=== PATIENT | female | born 1950 | race Caucasian/White ===

== ENCOUNTER → 2019-09-05 11:07 | Outpatient (CLI) | payer MEDICARE, SELFPAY ==
[2019-09-05 11:59] LABS: BUN 16 mg/dL (7-18); Creatinine, Serum 0.68 mg/dL (0.55-1.02); EST Glomerular Filtration Rate 90 mL/min (>60); Est Glom Filt Rate - Afr Amer 109 mL/min (>60)
== END ==
PROVIDERS: PCP Internal Medicine; Referring Provider Surgery Vascular Surgery; Visit Provider Surgery Vascular Surgery
DX: I72.8 Aneurysm of other specified arteries (principal); M54.9 Dorsalgia, unspecified
CPT/HCPCS: 36415; 82565; 84520

== ENCOUNTER → 2019-09-09 13:40 | Outpatient (CLI) | payer MEDICARE, SELFPAY ==
--- NOTE | 2019-09-09 13:54 | CT_ITS ---
STUDY: CT ANGIOGRAM OF THE ABDOMEN AND PELVIS WITH AND WITHOUT CONTRAST REASON FOR EXAM: Female, 69 years old. ANEURYSM OF SPLENIC ARTERY RADIATION DOSAGE (If Supplied By Facility): CTDIvol = ( 26.77 ) mGy, DLP = ( 851.20 ) mGycm. Individualized dose optimization techniques were used for this CT.? TECHNIQUE: Transaxial images were obtained through the abdomen and pelvis after administration of 100 mL Isovue 370 intravenous contrast without oral contrast.Sagittal and coronal images were reconstructed. COMPARISON: August 12, 2017. FINDINGS: Lung bases are clear. The heart is not enlarged. Multiple cysts in the liver largest in left lobe measuring 6.0 x 5.2 cm, not significantly changed. Gallbladder, pancreas, spleen, adrenal glands, kidneys and ureters are normal. Normal abdominal aortic aneurysm. Normal origins of the celiac axis, superior mesenteric artery, single bilateral renal arteries and inferior mesenteric artery. Again noted is a peripherally calcified splenic artery aneurysm measuring 1.9 x 1.8 x 1.8 cm located approximately 4 cm from the splenic hilum adjacent to the posterior margin, tail of pancreas not significantly changed in appearance since the prior study, coronal image 74. No perianeurysmal inflammatory changes. No evidence of a leak. Urinary bladder is normal. Uterus grossly normal. No adnexal mass seen. Stomach is not well distended limiting evaluation. Small intestine and colon are grossly normal. Normal appendix. No intra-abdominal free air. Mild degenerative changes of the lower thoracic and lumbar spine. Osseous hemangioma L4. 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 No evidence of a leak. Stable hepatic cysts. No acute findings in the abdomen or pelvis. Electronically Signed: Henok Del Rio MD at 7:52 EST , Service support ,
== END ==
PROVIDERS: PCP Internal Medicine; Referring Provider Surgery Vascular Surgery; Visit Provider Surgery Vascular Surgery
DX: I72.8 Aneurysm of other specified arteries (principal); M54.9 Dorsalgia, unspecified
CPT/HCPCS: 74174; Q9967

== ENCOUNTER 2020-02-08 08:17 | Day surgery (SDC) | payer MEDICARE, SELFPAY ==
[2020-02-03 13:24] LABS: Hematocrit 40.9 % (37-47); Hemoglobin 13.5 g/dL (12.0-15.0); Mean Corpuscular Hgb 31.9 pg (27.0-32.0); Mean Corpuscular Volume 96.7 fL (81-99); Mean Platelet Vol. 10.1 fl (6.2-12.0); Platelet Count 264 K/mm3 (150-450); RBC Distribution Width CV 13.8 % (11.6-14.6); RBC Distribution Width SD 48.8 fl (35.1-43.9); Red Blood Count 4.23 M/mm3 (4.2-5.4)
[2020-02-03 13:41] LABS: International Normalized Ratio 1.1; Partial Thromboplast Time 29.7 Seconds (24.1-36.2); Prothrombin Time (Protime)PT. 13.7 SECONDS (11.7-14.9)
[2020-02-03 14:14] LABS: ALB/GLOB Ratio 1.1 RATIO (0.9-2.4); AST(SGOT) 11 U/L (15-37); Alanine Aminotransfer ALT/SGPT 23 U/L (13-56); Albumin, Serum 3.8 g/dL (3.2-5.0); Alkaline Phosphatase 72 U/L (45-117); Anion Gap 7 (5-15); BUN 12 mg/dL (7-18); BUN/Creat Ratio 17.9 RATIO (10-20); Calcium,Total 8.7 mg/dL (8.5-10.1); Chloride 103 mmol/L (98-107); Creatinine, Serum 0.67 mg/dL (0.55-1.02); EST Glomerular Filtration Rate 93 mL/min (>60); Est Glom Filt Rate - Afr Amer 112 mL/min (>60); Globulin 3.5 g/dL (2.2-4.2); Glucose 90 mg/dL (74-106); Potassium 3.8 mmol/L (3.5-5.1); Protein, Total 7.3 g/dL (6.4-8.2); Sodium Level 139 mmol/L (136-145)
--- NOTE | 2020-02-07 11:27 | PCM.HP.BLA ---
History and Physical Date of Admission: 02/08/20 Surgical History and Physical Emily Dobbs, a 69 year old female 1 0 0 0 1, presents for Vaginal Hysterectomy and AP Repair on February 07,. 2020 at 10:10. -- Uterine Prolapse -- Emily presented due to a sudden bulge in her vagina. Denies spotting or interruption of urine stream. Worsening uterine prolapse. She has had prolapse for approximately 2 and 1/2 years, and has been worsening in the last 6 months. Feels a lot of pressure and periodic urinary incontinence/retention. Admits she is ready to have a Hysterectomy, as she is tired of this problem. Prolapse Uterus which began 2.5 years ago. Emily claims it started gradually and has been present worsened in last 6 months. It occurs all the time. It is located in the vagina. Emily characterizes it to be non-radiating. Emily characterizes the quality pressure, incontinence/retention. Severity is moderate and not improving. MEDICATIONS HISTORY: Patient is also takin. Nexium 40 mg capsule,delayed release, One pill by mouth twice a day 2. Prolia 60 mg/mL subcutaneous syringe, One every six months 3. Ventolin HFA 90 mcg/actuation aerosol inhaler, As Directed prn ALLERGIES: No Known Allergies Infections - Chicken pox, Mumps and Measles Illnesses - GERD, Aortic Anursyum Accidents - None Hospitalizations - see surgery Review of Systems: GENERAL - Denies fever, or chills SKIN - Denies skin changes EYES - Denies visual changes EARS - Denies difficulty hearing NOSE - Denies nasal congestion or bleeding MOUTH - Denies sore throat or difficulty swallowing NECK - Denies pain or swelling RESPIRATORY - Denies shortness of breath or wheezing CARDIOVASCULAR - Denies palpitations or chest pain GASTROINTESTINAL - Denies nausea, vomiting, diarrhea, constipation GENITOURINARY - Denies dysuria, frequency of urination, incontinence of urine MUSCULOSKELETAL - Denies joint or muscle pain NEUROLOGICAL - Denies localized numbness or weakness PSYCHIATRIC - Denies depression or anxiety ENDOCRINE - Denies heat or cold intolerance, weight loss or gain HEMATO-IMMUNOLOGIC - Denies excesive bleeding with cuts SOCIAL HISTORY: Alcohol Use - socially Smoking - Never Diet - no special diet Lifestyle - moderate stress lifestyle and Exercise - active Seat Belt Use - always Employer - Retired Illicit Drug Use - None Sexual Activity - Spouse-Sig Other Name - Jose Dobbs Spouse-Sig Other Occupation - Retired Children Name(s) - 1 child Control - postmenopausal FAMILY HISTORY: MENSTRUAL HISTORY: LMP Known?- Postmenopausal PAST PREGNANCIES: Total Pregnancies - 1; Full Term Pregnancies - 1; Premature - 0; Abortions, Induced - 0; Abortions, Spontaneous - 0; Ectopics - 0; Multiple Births - 0; Living Children - 1 SURGICAL HISTORY: 1. 1973 T and A 2. 1986 Bilateral Feet PHYSICAL EXAM BP- 128/78 Sitting, Right arm, regular cuff Weight- 182.09075 lbs Height- 62 inch BMI:33.36 CONSTITUTIONAL - NAD, well nourished, and well developed SKIN - No rash, lesions, or ulcers HEENT - Normocephalic, PERRLA, EOMI NECK - No nodes, no nuchal rigidity and thyroid normal size and texture LYMPH NODES - Palpation of lymph nodes in neck and groins within normal limits LUNGS - CTA x2 without wheezes, crackles or rales CARDIAC - Regular rate and rhythm without rubs, murmurs, or gallops BREAST - No dominant masses, no tenderness, no axillary adenopathy, no nipple discharge, no skin changes ABDOMEN - Without hepatosplenomegaly, distention, masses, rebound, or guarding; normal bowel sounds; no hernias EXTREMITIES - No edema or calf tenderness NEUROLOGICAL - Cranial nerves II-XII grossly intact PSYCHIATRIC - A and O to time, place, person, mood and affect External Genital Vagina - non-tender without lesions Urethra/Urethral Meatus - non-tender Bladder - non-tender Vagina - loss of rugae and cystocele 4-5 cm outside introitus; mod rectocele Cervix - Protrudes to introitus with cough and normal appearance Uterus - 5-6 cm in size, mobile and nontender Adnexa - clear without masses or tenderness ASSESSMENT/PLAN: 1. Uterovaginal Prolapse, Incomplete Discussed options at length including expectant management, pessary use or proceeding with Vaginal Hyst and AP Repair. Desires the surgery. Discussed RBAs and all quesitons answered. Started intravaginal estrogen. Procedure Criteria Procedure Type: Elective COVID Risk Discussion: The surgeon/proceduralist and patient have discussed in detail the risk of exposure to and/or potential harm posed by the COVID-19 virus with having a surgery/procedure at this time versus the risk of delaying the surgery/procedure. It is not possible to know either the risk of delaying the surgery or procedure or chance of getting an infection with perfect accuracy, but a joint decision was made between the patient and the surgeon/proceduralist to proceed at this time with the scheduled surgery/procedure as indicated on the consent form.
[2020-02-08] VITALS (9 sets, daily range): BP systolic 138–152; BP diastolic 64–88; PULSE 60–71; RESP 14–16; TEMP 36.1–37.1; O2SAT 94–100; BMI 34.2
--- NOTE | 2020-02-08 | HYST_PTH ---
PATIENT: ALIREZA SAHU LOC: [facility] [place] U#:[id number] AGE/SX: 69/F ROOM: RE02/08/[address]: Dr. Al Mcmanus MD : 1950 BED: DIS: 02/09/2020 SPEC #: [id number] RECD: 02/09/20 08:48 STATUS: YVON VANG #: [id number] KAVIN: 02/08/20 00:[address]: Al Mcmanus DEPT: SURGICAL PATHOLOGY RECD BY: Arturo Schroeder ENTERED: 02/09/20 08:48 SP TYPE: HYSTERECT OTHR DR: Dr. Rigo Johnson MD Tissues: Uterus, NOS Procedures: Surgery Specimen Level V HEADER OPERATION: Vaginal hysterectomy, A & P repair PRE-OP DIAGNOSIS: Uterine prolapse TISSUE SUBMITTED: Uterus, cervix, vagina mucosa MICROSCOPIC DIAGNOSIS Uterus, cervix, vaginal mucosa, vaginal hysterectomy and A & P repair: Cervix - mild chronic cystic cervicitis, squamous metaplasia, hyperkeratosis and parakeratosis. Endometrium - weakly proliferative endometrium with extensive cystic changes. Myometrium - adenomyosis. - intramural leiomyoma (1 cm in diameter). Vaginal mucosa - fragments of squamous mucosa with minimal chronic inflammation and focal parakeratosis. KYLE:fito 02/10/20 MICROSCOPIC DESCRIPTION Slides are reviewed. GROSS DESCRIPTION Received in fixative is one container labeled with the patient's name and designated uterus, cervix and vaginal mucosa. The specimen consists of a hysterectomy specimen consisting of uterus with cervix and detached pieces of mucosal tissue. The uterus with cervix weighs 32 gm and measures 9.5 x 3 x 2.5 cm. The serosal surface is bernard, glistening. The ectocervical mucosa is unremarkable. The external os is slit-like in contour. The endocervical canal measures 4.5 cm in length and the endocervical mucosa is bernard, glistening and unremarkable. The triangular endometrial cavity measures 3 cm in length and up to 1 cm in width. The endometrium is congested without any mass lesion and measures <0.1 cm in thickness. Sections of the uterine wall reveal a nodular mass in the posterior uterine wall measuring 1 cm in diameter. The uninvolved uterine wall measures up to 1.2 cm in thickness. Also present in the container are three variable sized pieces of bernard mucosal tissue measuring in aggregate 4 x 3.5 x 0.3 cm. No mucosal lesion is identified. Numerous instrumentation modi are noted. Body Stylist sections are submitted in seven cassettes as follows: 1 - anterior cervix, 2 - posterior cervix, 3 & 4 - anterior uterine wall, 5 & 6 - posterior uterine wall, nodular mass, 7 - mucosal tissue. / KYLE:fito 02/09/20 TC:1 CPT: 52227
--- NOTE | 2020-02-08 08:20 | EKG12_ITS ---
Test Reason : PRE-OP Blood Pressure : / mmHG Vent. Rate : 058 BPM Atrial Rate : 058 BPM P-R Int : 156 ms QRS Dur : 094 ms QT Int : 398 ms P-R-T Axes : -08 -06 049 degrees QTc Int : 390 ms Sinus bradycardia with sinus arrhythmia Otherwise normal ECG Confirmed by SOO ELKINS, CINDA ([id number]), social media editor SAMIA ALEX ([id number]) on 02/10/2020 10:45:48 AM Referred By: Al Mcmanus Confirmed By:CINDA VANN MD
[2020-02-08] MEDS: Lactated Ringers 1,000 ML 100 ML IV (09:08)
--- NOTE | 2020-02-08 12:58 | PCM.OPRPT ---
Report of Operation Date of Procedure: 02/08/20 Pre-Operative Diagnosis: Symptomatic Uterovaginal Prolapse Post-Operative Diagnosis: Symptomatic Uterovaginal Prolapse Surgery/Procedure Performed:: Vaginal Hysterectomy and Anterior Posterior Repair Description of Surgical Findings:: 6 cm uterus with the cervix protruding 3 cm outside the introitus. Large cystocele moderate rectocele. garland machine operator: Briana Rodriguez Type of Anesthesia:: General - Endotracheal Anesthesiologist: Juarez Nguyen Specimen's removed: Uterus and vaginal mucosa Drains: Hill to straight drain Estimated Blood Loss (mL): 100 cc Fluids Replaced: Crystalloid Description of Procedure: Surgeon: Al Mcmanus MD, FACOG Indications: This is a 69-year-old patient who is been having problems with symptomatic uterovaginal prolapse. Conservative measures have not been helpful. Given this the patient desires that we proceed the above procedure. She has been counseled regarding the risk and indications of this procedure including the possibility of bleeding, infection, and injury to surrounding structures such as bowel bladder. All questions were answered. Procedure: Patient was taken to the operating room where after induction of general anesthesia she was placed in the dorsal lithotomy position and prepped and draped in the usual sterile fashion. A Hill catheter was placed. Anterior cervix was grasped with a tenaculum and anterior cervix circumscribed with cautery on a setting of 35 W coagulation. Anterior vaginal mucosa was undermined and anterior peritoneum was easily entered. The posterior aspect of the cervix was circumscribed with a knife and posterior peritoneum easily entered. Progressive bites were taken on either side of the uterine cervix and each pedicle ligated with 0 Vicryl suture. Superior pedicles were ligated ?2 with 0 Vicryl suture and sidewall pedicles were examined and oversewn where necessary with [id number] 0 Vicryl suture to achieve hemostasis. Posterior vaginal cuff was oversewn with interrupted 0 Vicryl suture. Hemostasis was noted and peritoneum was closed in a pursestring fashion incorporating superior pedicles into the stitch. Vaginal cuff was then closed front to back with interrupted [id number] 0 Vicryl suture. Hemostasis was noted. Attention was turned toward the anterior repair portion of the procedure. Anterior vaginal mucosa was undermined and divided and then imbricated toward the midline with interrupted 0 Vicryl sutures. Vaginal mucosa was trimmed and then closed with interrupted 2-0 chromic suture. Vaginal cuff was then closed front to back with interrupted [id number] 0 Vicryl suture. Hemostasis was noted. Attention was turned toward the posterior repair portion of the procedure. Remnants of the hymenal ring were grasped with Allises and a V-shaped incision was made in the perineum. Rectovaginal mucosa was then undermined divided and then imbricated toward the midline with interrupted 0 Vicryl suture. Vaginal mucosa was trimmed and then closed with running locked 2-0 chromic suture. Remnants of the bulbocavernosus muscles were identified and brought toward the midline with a single [id number]-[id number] 0 Vicryl suture and perineum was closed in the usual fashion with running and subcuticular, and [id number] 2-0 chromic suture. Hemostasis was noted. Hill catheter was again opened and clear yellow urine was noted. Vagina was packed with approximately three fourths length of a 1 inch iodoform tape. Patient tolerated the procedure well was taken to recovery room in satisfactory condition; sponge instrument and needle counts were all reportedly correct. Estimated blood loss for the case was 100 cc. Cefotan 2 g IV was given prior to beginning the operative procedure. There were no apparent complications of the surgery. Specimen to pathology was uterus and vaginal mucosa. Grafts/Implants Used: None - Complications None - Admit VTE Documentation VTE Present on Admission: Yes VTE Mechan Device Prophylaxis: SCD's VTE Pharm Prophylaxis ordered?: Yes
--- NOTE | 2020-02-08 13:01 | PCM.DC.VHY ---
Discharge Diet: No Restrictions Discharge Activity: Return to Normal Activity, May Not Drive - while taking narcotic pain medications., May Shower, May Take a Tub Bath May resume sexual activity in: 6-8 weeks Call your doctor if your incision/area has: Continuous Slow Oozing, Sudden Increased Bleeding, Increased Pain/ Swelling, Increased Redness, Foul Smelling Discharge Call your doctor if you observe: Fever of 101 or Higher, Inability to urinate, Inability to have a bowel movement, Using more than one pad per hour Allergies/Adverse Reactions: Allergies No Known Allergies Allergy (Verified 02/03/20 13:01) Medications to take at Discharge Albuterol Inhaler [Ventolin Hfa (SP)] 1 - 2 puff INHALATION Q4H PRN PRN 02/03/20 Antiarthritic Combination No.2 [Glucosamine-Chondroitin] 1,800 mg PO DAILY 02/03/20 Ascorbic Acid [Vitamin C] 500 mg PO DAILY 02/03/20 Calcium Carbonate/Vitamin D3 [Calcium 600-Vit D3 200 Tablet] 1 ea PO BID 02/03/20 Cholecalciferol (Vitamin D3) [Vitamin D3] 5,000 unit PO QODAY 02/03/20 Denosumab [Prolia] 60 mg SQ .Q6MO 02/03/20 Famotidine [Pepcid] 20 mg PO BID 02/03/20 Melatonin/Pyridoxine HCl (B6) [Melatonin 10 mg Tablet] 1 ea PO QHS 02/03/20 Multivitamin with Minerals [Multiple Vitamin] 1 ea PO DAILY 02/03/20 Docusate Sodium [Colace] 100 mg PO BID PRN PRN #60 cap 02/08/20 Oxycodone [Oxyir] 5 mg PO Q6H PRN PRN 7 Days #10 tablet 02/08/20 The following prescriptions were given: Docusate Sodium [Colace] 100 mg PO BID PRN PRN #60 cap PRN Reason: Constipation Transmission Status: Pending to [id number] Oxycodone [Oxyir] 5 mg PO Q6H PRN PRN 7 Days #10 tablet PRN Reason: Pain Score 6-10/10 Transmission Status: Sent to [id number] Primary Care Physician: Rigo Johnson MD [Primary Care Provider] - Test Results: Test results from this visit will be discussed in further detail at your follow-up appointment, if applicable. Please Follow Up With: Al Mcmanus MD When: 2 to 3 weeks
[2020-02-08] MEDS: Ketorolac 15 MG/ML Vial IV ×2 (15:17→21:11)
[2020-02-08] MEDS: 0.9% Normal Saline 1,000 ML 100 ML IV (15:23)
[2020-02-08] MEDS: Dextrose 5%-Lactated Ringers 1,000 ML 125 ML IV (17:56)
[2020-02-08] MEDS: Famotidine 20 MG Tablet PO (21:11)
[2020-02-08] MEDS: Enoxaparin 30 MG/0.3 ML Syringe SC (21:11)
[2020-02-09 00:37] VITALS: BP 128/74; PULSE 76; RESP 16; TEMP 36.5; O2SAT 97
[2020-02-09] MEDS: 0.9% Saline Lock 10 ML Syringe IV ×2 (02:23→09:13)
[2020-02-09] MEDS: Ketorolac 15 MG/ML Vial IV ×2 (02:23→09:12)
[2020-02-09] MEDS: Dextrose 5%-Lactated Ringers 1,000 ML 125 ML IV (02:27)
[2020-02-09 04:39] VITALS: BP 127/72; PULSE 68; RESP 16; TEMP 36.7; O2SAT 95
[2020-02-09 05:52] LABS: Hematocrit 33.9 % (37-47); Hemoglobin 10.8 g/dL (12.0-15.0); Mean Corp Hgb Conc 31.9 g/dL (32-36); Mean Corpuscular Hgb 31.3 pg (27.0-32.0); Mean Corpuscular Volume 98.3 fL (81-99); Mean Platelet Vol. 9.5 fl (6.2-12.0); Platelet Count 165 K/mm3 (150-450); RBC Distribution Width CV 13.7 % (11.6-14.6); RBC Distribution Width SD 49.1 fl (35.1-43.9); Red Blood Count 3.45 M/mm3 (4.2-5.4); White Blood Count 8.9 K/mm3 (4.4-11.0)
[2020-02-09 06:19] LABS: Creatinine, Serum 0.79 mg/dL (0.55-1.02); EST Glomerular Filtration Rate 77 mL/min (>60); Est Glom Filt Rate - Afr Amer 93 mL/min (>60); Estimated Creatinine Clearance 40.07 ml/min
[2020-02-09 07:12] VITALS: O2SAT 95
[2020-02-09 07:37] VITALS: BP 132/66; PULSE 74; RESP 16; TEMP 36.9; O2SAT 96
--- NOTE | 2020-02-09 08:29 | PN.OBGYN_ITS ---
Subjective: Patient without complaints. Tolerating diet well. Minimal vaginal bleeding reported and Hill remains in place this morning. Objective: Vaginal pack removed with minimal bleeding noted. Good urine output. Hemoglobin and creatinine okay. - Physical Exam Vitals/I&O's: Vital Signs Temp Pulse Resp BP Pulse Ox 98.4 F 74 16 132/66 H 96 02/09/20 07:37 02/09/20 07:37 02/09/20 07:37 02/09/20 07:37 02/09/20 07:37 Oxygen Flow Rate (L/min) 2 Oxygen Delivery Method Room Air Weight: 184 lb 1.376 oz Body Mass Index (BMI) 34.2 Intake and Output for Last 24 Hours 02/07/20 02/08/20 02/09/20 23:59 23:59 23:59 Intake Total 3031.58 / 3031.58 1525 / 1525 Output Total 255 / 255 100 / 100 Balance 2776.58 / 2776.58 1425 / 1425 Laboratory Results 02/09/20 05:20: WBC 8.9, RBC 3.45 L, Hgb 10.8 L, Hct 33.9 L, MCV 98.3, MCH 31.3, MCHC 31.9 L, RDW Std Deviation 49.1 H, RDW Coeff of Judith 13.7, Plt Count 165, MPV 9.5 02/09/20 05:20: Creatinine 0.79, Estim Creat Clear Calc 40.07, Est GFR (MDRD) Af Amer 93, Est GFR (MDRD) Non-Af 77 Current Medications Acetaminophen (Tylenol) 1,000 mg PO Q8H PRN PRN PRN Reason: Pain Score 1-3/10 or Fever Docusate Sodium (Colace) 100 mg PO BID PRN PRN PRN Reason: Constipation Famotidine (Pepcid) 20 mg PO BID [facility] Last Admin: 02/08/20 21:11 Dose: 20 mg Documented by: Hydromorphone HCl (Dilaudid Inj) 0.5 mg IV Q3H PRN PRN PRN Reason: Pain Score 4-10/10 Dextrose/Lactated Ringer's () 1,000 mls @ 125 mls/hr IV .Q8H [facility] Last Infusion: 02/09/20 06:06 Dose: 125 mls/hr Documented by: Sodium Chloride () 250 mls @ 15 mls/hr IV .Q55H23L PRN PRN Reason: Saline Flush Last Infusion: 02/08/20 22:03 Dose: 0 mls/hr Documented by: Ketorolac Tromethamine (Toradol (Bkc)) 15 mg IV Q6H [facility] Stop: 02/13/20 15:18 Last Admin: 02/09/20 02:23 Dose: 15 mg Documented by: Non-Formulary Medication (Melatonin/Pyridoxine Hcl (B6) [Melatonin Tr 10 Mg Tablet]) 1 ea PO QHS [facility] Ondansetron HCl (Zofran) 4 mg IV Q4H PRN PRN PRN Reason: NAUSEA Oxycodone HCl (Oxyir) 5 mg PO Q4H PRN PRN PRN Reason: Pain Score 4-10/10 [facility]ethic[facility] (Mylicon) [facility] Last Admin: 02/08/20 21:11 Dose: 80 mg Documented by: Sodium Chloride () 10 - 40 ml IV UD PRN PRN Reason: SALINE FLUSH Last Admin: 02/09/20 02:23 Dose: 10 ml Documented by: Medical Necessity - Tobacco Use Smoking Status: Never smoker Tobacco Use: Non-smoker Assessment/Plan Doing well postoperative day #1 status post vaginal hysterectomy and anterior posterior repair. Will discharge to home when able to void on her own and tolerating diet well.
[2020-02-09] MEDS: Famotidine 20 MG Tablet PO (09:13)
[2020-02-09 13:42] VITALS: BP 122/72; PULSE 78; RESP 16; TEMP 36.7; O2SAT 100
--- NOTE | 2020-02-09 13:46 | NURSING ---
pt able to void another 150cc.
== END 2020-02-09 14:20 | disposition home or self-care (01) ==
LOC: SDC 08:17 → AC 08:18 → MS3 14:40
PROVIDERS: Anesthesiology; PCP Internal Medicine; Referring Provider Obstetrics & Gynecology; Visit Provider Obstetrics & Gynecology
PROC: (CPT 58260; principal; 2020-02-08 09:45)
DX: D25.1 Intramural leiomyoma of uterus (principal); N87.9 Dysplasia of cervix uteri, unspecified; N80.0 Endometriosis of uterus; N81.2 Incomplete uterovaginal prolapse; Z11.59 Encounter for screening for other viral diseases; K21.9 Gastro-esophageal reflux disease without esophagitis; J45.909 Unspecified asthma, uncomplicated; Z78.0 Asymptomatic menopausal state; Z79.899 Other long term (current) drug therapy
CPT/HCPCS: 00942; 57260; 58260; 36415; 80053; 82565; 85027; 85610; 85730; 86850; 86900; 86901; 87635; 88307; 93005; 99251; G2023; J7030; J7040; J7050; J7120; A4216; G0463; J2405; U0003

== ENCOUNTER → 2022-02-15 | Outpatient (CLI) | payer MEDICARE, SELFPAY ==
[2022-02-15 17:35] LABS: BUN 11 mg/dL (7-18); Creatinine, Serum 0.68 mg/dL (0.55-1.02); EST Glomerular Filtration Rate 91 mL/min (>60); Est Glom Filt Rate - Afr Amer 110 mL/min (>60)
== END | disposition home or self-care (01) ==
LOC: LAB 16:37
PROVIDERS: PCP Internal Medicine; Referring Provider Surgery Vascular Surgery; Visit Provider Surgery Vascular Surgery
DX: M81.0 Age-related osteoporosis without current pathological fracture (principal); I72.8 Aneurysm of other specified arteries; M54.9 Dorsalgia, unspecified
CPT/HCPCS: 36415; 82565; 84520

== ENCOUNTER → 2022-02-19 | Outpatient (CLI) | payer MEDICARE, SELFPAY ==
--- NOTE | 2022-02-19 13:39 | CT_ITS ---
STUDY: CTA ABDOMEN AND PELVIS WITH CONTRAST REASON FOR EXAM: Female, 71 years old. ANEURYSM OF SPLENIC ARTERY RADIATION DOSAGE (If Supplied By Facility): CTDIvol = ( 23.83 ) mGy, DLP = ( 1056.61 ) mGycm TECHNIQUE: Transaxial images were obtained from the dome of the diaphragm to the symphysis pubis without oral contrast. IV 100mL Isovue-370 was administered. Sagittal and coronal images were reconstructed. Individualized dose optimization techniques were used for this CT. COMPARISON: Comparison is made with prior study dated 09/09/2019. FINDINGS: The visualized lung bases are unremarkable. The visualized portions of the heart are within normal limits. There is decreased attenuation of the liver consistent with steatosis. Once again, multiple cysts are seen in the liver. These are unchanged. The largest cyst is seen in the medial aspect of the left lobe and measures 6 cm x 5 cm. Normal gallbladder and extrahepatic biliary system. Stable 1.8 cm x 1.7 cm splenic artery aneurysm with a calcified rim. Normal pancreas. Normal bilateral adrenal glands. Normal right kidney. Normal left kidney. There is a small hiatal hernia. Normal small intestine. Normal colon. The appendix is visualized and appears normal. Normal abdominal aorta. Normal inferior vena cava. Normal retroperitoneum. Normal urinary bladder. There is absence of the uterus consistent with a prior hysterectomy. Normal abdominal wall. There are degenerative changes of the visualized lumbar spine. Status post bilateral total hip replacement. CT/CT ANGIO ABD&PEL W/O&W/DYE IMPRESSION: Stable appearance of the calcified splenic artery aneurysm. Stable hepatic cysts. Electronically Signed: Geo Arceo MD at 15:15 EDT ,
== END | disposition home or self-care (01) ==
LOC: CT 13:37
PROVIDERS: PCP Internal Medicine; Referring Provider Surgery Vascular Surgery; Visit Provider Surgery Vascular Surgery
DX: I72.8 Aneurysm of other specified arteries (principal); M81.0 Age-related osteoporosis without current pathological fracture; M54.9 Dorsalgia, unspecified
CPT/HCPCS: 74174; Q9967; A4216

== ENCOUNTER → 2025-06-16 | Outpatient (CLI) | payer MEDICARE, SELFPAY ==
[2025-06-11 10:19] LABS: BUN 14 mg/dL (4-19)
--- NOTE | 2025-06-16 13:50 | CT_ITS ---
PROCEDURE: CTA ABD/PELVIS W/WO CONTRAST 06/16/2025 REASON FOR EXAM: ANEURYSM OF OTHER SPECIFIED ARTERIES Follow-up for splenic artery aneurysm. TECHNIQUE: Procedure Code: [id number] Modality: CT Procedure: CTA ABD/PELVIS W/WO CONTRAST Multiplanar Sagittal and Coronal images were obtained. 3D and or MIPS post processing was performed CONTRAST: Isovue 370 VOLUME: 100 mL One or more dose reduction techniques were used (e.g., Automated exposure control, adjustment of the mA and/or kV according to patient size, use of iterative reconstruction technique). RADIATION DOSE SUMMARY: CTDlvol: 23.1 mGy DLP: 1030.07 mGycm COMPARISON: February 19, 2022. FINDINGS: Aorta: Mild degree of atherosclerotic plaque formation. Iliac Arteries: Unremarkable. Celiac: Widely patent. There is a stable 1.8 x 1.9 cm aneurysm of the distal portion of the splenic artery at the level of the splenic hilum. There is evidence of stable calcific rim. SMA: Widely patent. Minimal atherosclerotic plaque formation at the origin of the superior mesenteric artery. LIZETT : Unremarkable Right Renal: Unremarkable Left Renal: Unremarkable Extravascular Findings: Fatty infiltration of the liver. Multiple cysts are seen in the liver. These are unchanged. The patient is status post hysterectomy. Degenerative changes of the lumbar spine. Status post bilateral hip replacement. CT/CTA Abd/Pelvis W/WO Contrast IMPRESSION: Stable examination. Reading Location: [id number]
== END | disposition home or self-care (01) ==
LOC: CT 13:38
PROVIDERS: PCP Student in an Organized Health Care Education/Training Program; Referring Provider Surgery Vascular Surgery; Visit Provider Surgery Vascular Surgery
DX: M81.0 Age-related osteoporosis without current pathological fracture (principal); I72.8 Aneurysm of other specified arteries; M54.9 Dorsalgia, unspecified
CPT/HCPCS: 36415; 74174; 82565; 84520; Q9967